=== PATIENT | female | born 1935 | race Caucasian/White ===

== ENCOUNTER 2022-04-25 10:20 | Observation (INO) | payer MEDICARE ==
[2022-04-25] MEDS ORDERED: NITROGLYCERIN OINT 1 INCH/GM PACKET TOPICAL STA (10:42)
[2022-04-25] MEDS ORDERED: ASPIRIN 81 MG PO STA (10:42)
--- NOTE | 2022-04-25 11:00 | ED ---
General Adult HPI - General Chief complaint: Shortness of Breath Stated complaint: SOB Time Seen by Provider: 04/25/22 10:25 Source: patient, EMS, RN notes reviewed Mode of arrival: EMS Limitations: no limitations - History of Present Illness Initial comments: Patient is a pleasant 86-year-old female presenting to the emergency department with concerns with dyspnea and chest pressure. Onset of symptoms was this morning. Patient was in the hospital a few weeks ago at a different facility with fluid overload. Patient does have history of atrial fibrillation and does take Xarelto. Chest discomfort lasted this morning and was described as pressure. This is now resolved. No associated nausea or diaphoresis. - Related Data Allergies Allergy/AdvReac Type Severity Reaction Status Date / Time Penicillins Allergy Unknown Verified 04/25/22 10:45 Review of Systems ROS Statement: Those systems with pertinent positive or pertinent negative responses have been documented in the HPI. ROS Other: All systems not noted in ROS Statement are negative. Constitutional: Denies: fever Eyes: Denies: eye pain ENT: Denies: ear pain Respiratory: Reports: as per HPI, dyspnea. Denies: cough Cardiovascular: Reports: as per HPI, chest pain Endocrine: Denies: fatigue Gastrointestinal: Denies: abdominal pain Genitourinary: Denies: dysuria Musculoskeletal: Denies: back pain Past Medical History Past Medical History: Atrial Fibrillation, Heart Failure, Hyperlipidemia, Hypertension History of Any Multi-Drug Resistant Organisms: None Reported Past Surgical History: Adenoidectomy, Hysterectomy, Orthopedic Surgery, Pacemaker, Tonsillectomy Additional Past Surgical History / Comment(s): cataract surgery Past Psychological History: No Psychological Hx Reported Smoking Status: Never smoker Past Alcohol Use History: Occasional Past Drug Use History: None Reported General Exam Limitations: no limitations General appearance: alert, in no apparent distress Head exam: Present: normocephalic Eye exam: Present: normal appearance Neck exam: Present: normal inspection Respiratory exam: Present: normal lung sounds bilaterally Cardiovascular Exam: Present: regular rate, normal rhythm Expanded Peripheral pulses: 2+: Radial (R), Radial (L), Posterior Tibialis (R), Posterior Tibialis (L) GI/Abdominal exam: Present: soft. Absent: tenderness Extremities exam: Present: normal inspection. Absent: pedal edema, calf tenderness Neurological exam: Present: alert Psychiatric exam: Present: normal affect, normal mood Skin exam: Present: normal color Course Vital Signs 04/25/22 04/25/22 10:34 11:23 Temperature 97.9 F Pulse Rate 79 Respiratory 18 18 Rate Blood Pressure 150/89 O2 Sat by Pulse 98 Oximetry EKG Findings - EKG Results: EKG: interpreted by YAMILETHD (Wide QRS complex when pacers bikes kick in. There is inferior T wave inversion as well as V2. Borderline ST change aVL. Borderline inferior ST depression), normal axis EKG shows: atrial fibrillation (With pacer spikes at the end of the EKG) Medical Decision Making - Medical Decision Making Was pt. sent in by a medical professional or institution (, PA, COMPENSATION ASSOCIATE, urgent c are, hospital, or alf...) When possible be specific @ -No Did you speak to anyone other than the patient for history (EMS, parent, family, police, friend...)? What history was obtained from this source @ -No Did you review nursing and triage notes (agree or disagree)? Why? @ -I reviewed and agree with nursing and triage notes Were old charts reviewed (outside hosp., previous admission, EMS record, old EKG, old radiological studies, urgent care reports/EKG's, alf records)? Report findings @ -No old charts are available Differential Diagnosis (chest pain, altered mental status, abdominal pain women, abdominal pain men, vaginal bleeding, weakness, fever, dyspnea, syncope, headache, dizziness, GI bleed, back pain, seizure, CVA, palpatations, mental health)? @ -Differential Dyspnea: Coronary syndrome, arrhythmia, tamponade, asthma, COPD, pulmonary embolism, pneumonia, pneumothorax, pulmonary effusion, anaphylaxis, diabetic ketoacidosis, flailed chest, pulmonary contusion, diaphragmatic rupture, anemia, neuromuscular, this is not meant to be an all-inclusive list. EKG interpreted by me (3pts min.). @ -As above X-rays interpreted by me (1pt min.). @ -Chest x-ray shows mild increase fluid, correlate CHF CT interpreted by me (1pt min.). @ -None done U/S interpreted by me (1pt. min.). @ -None done What testing was considered but not performed or refused? (CT, X-rays, U/S, labs)? Why? @ -None What meds were considered but not given or refused? Why? @ -None Did you discuss the management of the patient with other professionals (professionals i.e. , PA, COMPENSATION ASSOCIATE, lab, RT, psych nurse, protective services social worker, wet primer powder blender, teacher, policy officer, rn case manager hospice)? Give summary @ -Case discussed with Dr. Keenan, who will admit covering hospital call Was smoking cessation discussed for >3mins.? @ -No Was critical care preformed (if so, how long)? @ -No Were there social determinants of health that impacted care today? How? (Homelessness, low income, unemployed, alcoholism, drug addiction, transportation, low edu. Level, literacy, decrease access to med. care, fpc, rehab)? @ -No Was there de-escalation of care discussed even if they declined (Discuss DNR or withdrawal of care, Hospice)? DNR status @ -No What co-morbidities impacted this encounter? (DM, HTN, Smoking, COPD, CAD, Cancer, CVA, ARF, Chemo, Hep., AIDS, mental health diagnosis, sleep apnea, morbid obesity)? @ -History of cardiac disease and CHF Was patient admitted / discharged? Hospital course, mention meds given and route, prescriptions, significant lab abnormalities, going to OR and other pertinent info. @ -Patient reevaluated. Patient resting comfortably in bed. Patient updated on results and plan. Patient will be admitted with cardiology consult Undiagnosed new problem with uncertain prognosis? @ -No Drug Therapy requiring intensive monitoring for toxicity (Heparin, Nitro, Insulin, Cardizem)? @ -No Were any procedures done? @ -No Diagnosis/symptom? @ -Chest pain Acute, or Chronic, or Acute on Chronic? @ -Acute Uncomplicated (without systemic symptoms) or Complicated (systemic symptoms)? @ -Uncomplicated Side effects of treatment? @ -No Exacerbation, Progression, or Severe Exacerbation? @ -No Poses a threat to life or bodily function? How? (Chest pain, [place], MA, pneumonia, PE, COPD, DKA, ARF, appy, cholecystitis, CVA, Diverticulitis, Homicidal, Suicidal, threat to staff... and all critical care pts) @ -Potential threat if chest discomfort is related to cardiac ischemia - Lab Data Result diagrams: 04/25/22 10:47 04/25/22 10:47 Lab Results 04/25/22 04/25/22 04/25/22 Range/Units 10:47 10:47 10:47 WBC 3.8 (3.8-10.6) k/uL RBC 4.27 (3.80-5.40) m/uL Hgb 12.9 (11.4-16.0) gm/dL Hct 38.4 (34.0-46.0) % MCV 89.9 (80.0-100.0) fL MCH 30.2 (25.0-35.0) pg MCHC 33.6 (31.0-37.0) g/dL RDW 13.1 (11.5-15.5) % Plt Count 187 (150-450) k/uL MPV 8.3 Neutrophils % 59 % Lymphocytes % 20 % Monocytes % 9 % Eosinophils % 7 % Basophils % 1 % Neutrophils # 2.2 (1.3-7.7) k/uL Lymphocytes # 0.7 L (1.0-4.8) k/uL Monocytes # 0.4 (0-1.0) k/uL Eosinophils # 0.3 (0-0.7) k/uL Basophils # 0.0 (0-0.2) k/uL PT 11.7 (9.0-12.0) sec INR 1.1 (<1.2) APTT 31.4 H (22.0-30.0) sec Sodium 141 (137-145) mmol/L Potassium 4.3 (3.5-5.1) mmol/L Chloride 104 (98-107) mmol/L Carbon Dioxide 31 H (22-30) mmol/L Anion Gap 6 mmol/L BUN 29 H (7-17) mg/dL Creatinine 0.69 (0.52-1.04) mg/dL Est GFR (CKD-EPI)AfAm >90 (>60 ml/min/1.73 sqM) Est GFR (CKD-EPI)NonAf 80 (>60 ml/min/1.73 sqM) Glucose 94 (74-99) mg/dL Calcium 9.0 (8.4-10.2) mg/dL Magnesium 2.3 (1.6-2.3) mg/dL Total Bilirubin 1.1 (0.2-1.3) mg/dL AST 33 (14-36) U/L ALT 22 (4-34) U/L Alkaline Phosphatase 45 (38-126) U/L Troponin I (0.000-0.034) ng/mL NT-Pro-B Natriuret Pep pg/mL Total Protein 6.8 (6.3-8.2) g/dL Albumin 4.1 (3.5-5.0) g/dL 04/25/22 04/25/22 Range/Units 10:47 10:47 WBC (3.8-10.6) k/uL RBC (3.80-5.40) m/uL Hgb (11.4-16.0) gm/dL Hct (34.0-46.0) % MCV (80.0-100.0) fL MCH (25.0-35.0) pg MCHC (31.0-37.0) g/dL RDW (11.5-15.5) % Plt Count (150-450) k/uL MPV Neutrophils % % Lymphocytes % % Monocytes % % Eosinophils % % Basophils % % Neutrophils # (1.3-7.7) k/uL Lymphocytes # (1.0-4.8) k/uL Monocytes # (0-1.0) k/uL Eosinophils # (0-0.7) k/uL Basophils # (0-0.2) k/uL PT (9.0-12.0) sec INR (<1.2) APTT (22.0-30.0) sec Sodium (137-145) mmol/L Potassium (3.5-5.1) mmol/L Chloride (98-107) mmol/L Carbon Dioxide (22-30) mmol/L Anion Gap mmol/L BUN (7-17) mg/dL Creatinine (0.52-1.04) mg/dL Est GFR (CKD-EPI)AfAm (>60 ml/min/1.73 sqM) Est GFR (CKD-EPI)NonAf (>60 ml/min/1.73 sqM) Glucose (74-99) mg/dL Calcium (8.4-10.2) mg/dL Magnesium (1.6-2.3) mg/dL Total Bilirubin (0.2-1.3) mg/dL AST (14-36) U/L ALT (4-34) U/L Alkaline Phosphatase (38-126) U/L Troponin I <0.012 (0.000-0.034) ng/mL NT-Pro-B Natriuret Pep 567 pg/mL Total Protein (6.3-8.2) g/dL Albumin (3.5-5.0) g/dL Disposition Clinical Impression: Chest pain Disposition: ADMITTED IP TO THIS HOSP Is patient prescribed a controlled substance at d/c from ED?: No Referrals: Aarti Peña DO [Primary Care Provider] - 1-2 days Time of Disposition: 12:46
[2022-04-25 11:08] LABS: Basophils % (A) 1 %; Eosinophils # (A) 0.3 k/uL (0-0.7); Eosinophils % (A) 7 %; HCT 38.4 % (34.0-46.0); HGB 12.9 gm/dL (11.4-16.0); Lymphocytes # (A) 0.7 k/uL (1.0-4.8); Lymphocytes % (A) 20 %; MCH 30.2 pg (25.0-35.0); MCHC 33.6 g/dL (31.0-37.0); MCV 89.9 fL (80.0-100.0); Mean Platelet Volume 8.3; Monocytes # (A) 0.4 k/uL (0-1.0); Monocytes % (A) 9 %; Neutrophils # (A) 2.2 k/uL (1.3-7.7); Neutrophils % (A) 59 %; Platelet Count 187 k/uL (150-450); RBC 4.27 m/uL (3.80-5.40); RDW 13.1 % (11.5-15.5); WBC 3.8 k/uL (3.8-10.6)
[2022-04-25 11:15] LABS: INR 1.1 (<1.2); Partial Thromboplastin Time 31.4 sec (22.0-30.0); Prothrombin Time 11.7 sec (9.0-12.0)
--- NOTE | 2022-04-25 11:26 | XR ---
EXAMINATION TYPE: XR chest 2V DATE OF EXAM: 04/25/2022 COMPARISON: NONE HISTORY: Chest pain TECHNIQUE: Frontal and lateral views of the chest are obtained. FINDINGS: There is a 2-lead cardiac pacemaker and mild to moderate cardiomegaly. The pulmonary vasculature ami ears mildly cephalized raising the possibility of mild CHF. There is no airspace opacity. There is no pleural effusion or pneumothorax. The osseous structures ar e intact IMPRESSION: Possible mild CHF as described above.
[2022-04-25 11:28] LABS: ALT 22 U/L (4-34); AST 33 U/L (14-36); African American GFR (CKD) >90 (>60 ml/min/1.73 sqM); Albumin 4.1 g/dL (3.5-5.0); Alkaline Phosphatase 45 U/L (38-126); Anion Gap 6 mmol/L; Blood Urea Nitrogen 29 mg/dL (7-17); Carbon Dioxide 31 mmol/L (22-30); Chloride 104 mmol/L (98-107); Glucose 94 mg/dL (74-99); Magnesium 2.3 mg/dL (1.6-2.3); Non-African American GFR(CKD) 80 (>60 ml/min/1.73 sqM); Potassium 4.3 mmol/L (3.5-5.1); Sodium 141 mmol/L (137-145); Total Bilirubin 1.1 mg/dL (0.2-1.3); Total Protein 6.8 g/dL (6.3-8.2)
[2022-04-25] MEDS ORDERED: NITROGLYCERIN SL TABS 0.4 MG TAB SUBLINGUAL PRN (12:47)
[2022-04-25] MEDS ORDERED: FUROSEMIDE 10 MG/ML 4 ML VIAL IV STA (12:47)
[2022-04-25] MEDS ORDERED: CALCIUM CARBONATE 500 MG CHEWABLE PO PRN (14:23)
[2022-04-25] MEDS ORDERED: MELATONIN 3 MG TABLET PO PRN (14:23)
[2022-04-25] MEDS ORDERED: LORazepam 0.5 MG TAB PO PRN (14:23)
[2022-04-25] MEDS ORDERED: ACETAMINOPHEN TAB 325 MG TAB PO PRN (14:23)
[2022-04-25] MEDS ORDERED: ONDANSETRON 4 MG/2 ML VIAL IVP PRN (14:23)
[2022-04-25] MEDS ORDERED: NALOXONE 0.4 MG/ML 1 ML VIAL IV PRN (14:23)
[2022-04-25] MEDS ORDERED: LACTULOSE 20 GM/30 ML CUP PO PRN (14:23)
--- NOTE | 2022-04-25 15:58 | P.HPIM ---
History of Present Illness H&P Date: 04/25/22 Chief Complaint: Short of breath This is a very pleasant 86-year-old patient follows with natural developer Dr. Cobb. Chronic stable medical conditions include atrial fibrillation, CHF, hypertension, hyperlipidemia, pacemaker. At 9:00 this morning patient started feeling a bit short of breath. Also developed a chest pressure. That last about 5 minutes. Did not radiate. No dizziness no letter did miss. No cough or lower exstrophy setting. No fever no chills. Feeling a bit better now. Review of systems: GEN.: Tired EYES: None HEENT: Decreased hearing NECK: None RESPIRATORY: As above CARDIOVASCULAR: No new leg swelling GASTROINTESTINAL: None GENITOURINARY: None MUSCULOSKELETAL: Joint pains LYMPHATICS: None HEMATOLOGICAL: None PSYCHIATRY: None NEUROLOGICAL: None Past medical history to include: Atrial fibrillation, CHF, hypertension, hyperlipidemia, osteoarthritis, permanent pacemaker Social history: Lives with her . Alcohol occasionally. Nonsmoker. Physical examination: VITAL SIGNS: 97.9, 79, 18, 150/89, 98% room air GENERAL: BMI 34.6, sitting edge the bed, awake not in distress. EYES: Pupils equal. Conjunctiva normal. HEENT: External appearance of nose and ears normal, oral cavity grossly normal. Decreased hearing NECK: JVD not raised; masses not palpable. HEART: First and second heart sounds are normal; no edema. LUNGS: Respiratory rate normal; clear to auscultation. ABDOMEN: Soft, nontender, liver spleen not palpable, no masses palpable. PSYCH: Alert and oriented x3; mood and affect normal. MUSCULOSKELETAL:No Clubbing/cyanosis;muscles-grossly intact. ON many joints NEUROLOGICAL: Cranial nerves grossly intact; no facial asymmetry, power and sensation grossly intact. LYMPHATICS: No lymph nodes palpable in the axilla and neck INVESTIGATIONS, reviewed in the clinical context: White count 3.8 hemoglobin 12.9 platelets 187 potassium 4.3 BUN 29 creatinine 0.69 D-dimer 0.62 EKG tracing personally reviewed by me-underlying atrial fibrillation with ventricular paced rhythm intermittently Chest x-ray film personally reviewed by me-carbohydrate, less prominence Assessment and plan: -Acute congestive heart feeling exacerbation, EF not known Received 1 dose of IV Lasix 40 mg the ER. IV Lasix 40 mg every 12. 2-D echocardiogram. Consult cardiology. -Elevated d-dimer 0.62 Rule out PE/CT chest -Persistent atrial fibrillation, rate controlled Metoprolol XL 200 mg a day, Xarelto -Primary osteoarthritis Tylenol as needed -Full code Care was discussed with the patient has been at the bedside. Questions answered. Past Medical History Past Medical History: Atrial Fibrillation, Heart Failure, Hyperlipidemia, Hypertension History of Any Multi-Drug Resistant Organisms: None Reported Past Surgical History: Adenoidectomy, Hysterectomy, Orthopedic Surgery, Pacemaker, Tonsillectomy Additional Past Surgical History / Comment(s): cataract surgery Type of Cardiac Device: Permanent Pacemaker Device Placement Date:: 2013 Past Psychological History: No Psychological Hx Reported Smoking Status: Never smoker Past Alcohol Use History: Occasional Past Drug Use History: None Reported Medications and Allergies Home Medications Medication Instructions Recorded Confirmed Type Allergy Pill(Unknown) 1 tab PO DAILY PRN 04/25/22 04/25/22 History Aspirin [[place] Aspirin EC] 81 mg PO W/SUPPER 04/25/22 04/25/22 History Ezetimibe [Zetia] 10 mg PO W/SUPPER 04/25/22 04/25/22 History Furosemide [Lasix] 80 mg PO DAILY 04/25/22 04/25/22 History Ibandronate Sodium [Boniva] 150 mg PO Q30D 04/25/22 04/25/22 History Metoprolol Succinate 200 mg PO DAILY 04/25/22 04/25/22 History Potassium Chloride [Klor-Con 10 ER] 10 meq PO DAILY 04/25/22 04/25/22 History Retnavites 2 tab PO DAILY 04/25/22 04/25/22 History Rivaroxaban [Xarelto] 20 mg PO W/SUPPER 04/25/22 04/25/22 History Vitamin D3/Calcium 600mg 1 tab PO BID 04/25/22 04/25/22 History Allergies Allergy/AdvReac Type Severity Reaction Status Date / Time Penicillins Allergy Unknown Verified 04/25/22 15:23 Physical Exam Vitals: Vital Signs Temp Pulse Pulse Resp BP BP Pulse Ox 04/25/22 14:17 98 F 70 18 139/86 99 04/25/22 13:18 74 15 136/78 99 04/25/22 11:23 18 04/25/22 10:34 97.9 F 79 18 150/89 98 Intake and Output 04/25/22 04/25/22 04/25/22 06:59 14:59 22:59 Other: # Voids 1 Weight 83.007 kg Results CBC & Chem 7: 04/25/22 10:47 04/25/22 10:47 Labs: Abnormal Lab Results - Last 24 Hours (Table) 04/25/22 04/25/22 04/25/22 Range/Units 10:47 10:47 10:47 Lymphocytes # 0.7 L (1.0-4.8) k/uL APTT 31.4 H (22.0-30.0) sec D-Dimer (<0.60) mg/L FEU Carbon Dioxide 31 H (22-30) mmol/L BUN 29 H (7-17) mg/dL 04/25/22 Range/Units 14:30 Lymphocytes # (1.0-4.8) k/uL APTT (22.0-30.0) sec D-Dimer 0.62 H (<0.60) mg/L FEU Carbon Dioxide (22-30) mmol/L BUN (7-17) mg/dL Thrombosis Risk Factor Assmnt - Choose All That Apply Any of the Below Risk Factors Present?: Yes Each Factor Represents 1 point: Obesity (BMI >25) Other Risk Factors: Yes Each Risk Factor Represents 3 Points: Age 75 years or older Other congenital or acquired thrombophilia - If yes, enter type in comment: No Thrombosis Risk Factor Assessment Total Risk Factor Score: 4 Thrombosis Risk Factor Assessment Level: Moderate Risk
[2022-04-25] MEDS: ASPIRIN 81 MG PO SCH (17:16)
--- NOTE | 2022-04-25 17:16 | CT ---
EXAMINATION TYPE: CT angio chest DATE OF EXAM: 04/25/2022 COMPARISON: None HISTORY: Chest pain, SOB and elevated d-dimer. CT DLP: 363.6 mGycm Automated exposure control for dose reduction was used. CONTRAST: Performed with IV Contrast, patient injected with 79ml mL of Isovue 370. There are Three-D postprocessed images. No mediastinal adenopathy. There are no hilar masses. There is large central pulmonary arteries. No f illing defect seen in the pulmonary arteries. Thoracic aorta appears intact. No evidence of aneurysm or dissection. The ascending aorta measures 3.6 cm. Heart is borderline enlarged. There is mild subsegmental atelectasis at the lung bases. No pleural ef fusion. There are calcified splenic granulomata. The thoracic spine is intact sternum is intact. IMPRESSION: No evidence of pulmonary embolism. Cardiomegaly and changes of pulmonary hypertension. Fibrotic rose es and subsegmental atelectasis at the lung bases. No suspicious pulmonary mass.
[2022-04-25] MEDS: RIVAROXABAN 20 MG TAB PO SCH (17:19)
[2022-04-25] MEDS: EZETIMIBE 10 MG TAB PO SCH (17:20)
[2022-04-25] MEDS ORDERED: POTASSIUM CHLORIDE ER 10 MEQ TAB.ER.PRT PO STA (17:22)
[2022-04-25] MEDS: NITROGLYCERIN OINT 1 INCH/GM PACKET TOPICAL SCH (19:31)
[2022-04-25] MEDS: CALCIUM CARB-VIT D 500 MG-5 MCG TAB PO SCH (19:56)
[2022-04-26] MEDS: NITROGLYCERIN OINT 1 INCH/GM PACKET TOPICAL SCH ×4 (02:34→19:30)
--- NOTE | 2022-04-26 08:11 | P.CRDCN ---
History of Present Illness Consult date: 04/26/22 Chief complaint: CP History of present illness: The patient is a pleasant 86-year-old female patient was physical and mental physical and mental shape with a past medical history significant for permanent atrial fibrillation and permanent pacemaker as well as hypertension and dyslipidemia presented to the hospital complaining of chest discomfort. The patient was in her usual state of health until yesterday when she was trying to get out of the bed and she started experiencing discomfort in the chest. She described the discomfort as a pressure in the middle of the chest was some radiation to her left arms but no associated symptoms of shortness of breath or sweating or dizziness or lightheadedness or any feeling of heart racing or flu ttering or presyncope or syncope. The discomfort lasted about 5-10 minutes. Currently she is chest pain-free. She underwent a workup in the emergency department she showing underlying atrial fibrillation with ventricular paced rhythm and she underwent cardiac enzymes came in to be unremarkable. D-dimer came in to be abnormal was subsequently CTA of the chest did not show any evidence of pulmonary embolism. Currently the patient is chest pain-free. The rest of her workup including CBC and BNP came in to be unremarkable. The examination is remarkable for regular rhythm with a systolic murmur and clear breathing sounds bilaterally and no lower eccentric is edema noted. Vitals are stable as well. Assessment Chest discomfort. Currently the patient is chest pain-free Hypertension Dyslipidemia Permanent pacemaker Permanent atrial fibrillation Plan Acute coronary event was ruled out Pulmonary embolism was ruled out Rule out severe CAD giving her multiple risk factors. I'm going to obtain a stress test Follow-up with the patient Past Medical History Past Medical History: Atrial Fibrillation, Heart Failure, Hyperlipidemia, Hypertension History of Any Multi-Drug Resistant Organisms: None Reported Past Surgical History: Adenoidectomy, Hysterectomy, Orthopedic Surgery, Pacemaker, Tonsillectomy Additional Past Surgical History / Comment(s): cataract surgery Type of Cardiac Device: Permanent Pacemaker Device Placement Date:: 2013 Past Psychological History: No Psychological Hx Reported Smoking Status: Never smoker Past Alcohol Use History: Occasional Past Drug Use History: None Reported Medications and Allergies Home Medications Medication Instructions Recorded Confirmed Type Allergy Pill(Unknown) 1 tab PO DAILY PRN 04/25/22 04/25/22 History Aspirin [[place] Aspirin EC] 81 mg PO W/SUPPER 04/25/22 04/25/22 History Ezetimibe [Zetia] 10 mg PO W/SUPPER 04/25/22 04/25/22 History Furosemide [Lasix] 80 mg PO DAILY 04/25/22 04/25/22 History Ibandronate Sodium [Boniva] 150 mg PO Q30D 04/25/22 04/25/22 History Metoprolol Succinate 200 mg PO DAILY 04/25/22 04/25/22 History Potassium Chloride [Klor-Con 10 ER] 10 meq PO DAILY 04/25/22 04/25/22 History Retnavites 2 tab PO DAILY 04/25/22 04/25/22 History Rivaroxaban [Xarelto] 20 mg PO W/SUPPER 04/25/22 04/25/22 History Vitamin D3/Calcium 600mg 1 tab PO BID 04/25/22 04/25/22 History Allergies Allergy/AdvReac Type Severity Reaction Status Date / Time Penicillins Allergy Unknown Verified 04/25/22 15:23 Physical Exam Vitals: Vital Signs Temp Pulse Pulse Resp BP BP Pulse Ox 04/26/22 07:00 97.5 F L 71 18 103/65 97 04/26/22 02:00 97.6 F 70 16 110/73 97 04/25/22 19:01 97.8 F 67 18 117/74 91 L 04/25/22 14:17 98 F 70 18 139/86 99 04/25/22 13:18 74 15 136/78 99 04/25/22 11:23 18 04/25/22 10:34 97.9 F 79 18 150/89 98 Intake and Output 04/25/22 04/26/22 04/26/22 22:59 06:59 14:59 Intake Total 120 Balance 120 Intake: Oral 120 Other: Voiding Method Toilet Toilet # Voids 1 3 Results 04/25/22 10:47 04/25/22 10:47 Cardiac Enzymes 04/25/22 04/25/22 04/25/22 Range/Units 10:47 10:47 14:30 AST 33 (14-36) U/L Troponin I <0.012 <0.012 (0.000-0.034) ng/mL 04/25/22 Range/Units 17:05 AST (14-36) U/L Troponin I <0.012 (0.000-0.034) ng/mL Coagulation 04/25/22 Range/Units 10:47 PT 11.7 (9.0-12.0) sec APTT 31.4 H (22.0-30.0) sec CBC 04/25/22 Range/Units 10:47 WBC 3.8 (3.8-10.6) k/uL RBC 4.27 (3.80-5.40) m/uL Hgb 12.9 (11.4-16.0) gm/dL Hct 38.4 (34.0-46.0) % Plt Count 187 (150-450) k/uL Comprehensive Metabolic Panel 04/25/22 Range/Units 10:47 Sodium 141 (137-145) mmol/L Potassium 4.3 (3.5-5.1) mmol/L Chloride 104 (98-107) mmol/L Carbon Dioxide 31 H (22-30) mmol/L BUN 29 H (7-17) mg/dL Creatinine 0.69 (0.52-1.04) mg/dL Glucose 94 (74-99) mg/dL Calcium 9.0 (8.4-10.2) mg/dL AST 33 (14-36) U/L ALT 22 (4-34) U/L Alkaline Phosphatase 45 (38-126) U/L Total Protein 6.8 (6.3-8.2) g/dL Albumin 4.1 (3.5-5.0) g/dL Current Medications Generic Name Dose Route Start Last Admin Trade Name Freq PRN Reason Stop Dose Admin Acetaminophen 650 mg 04/25/22 14:23 Acetaminophen Tab 325 Mg Tab PO Q6HR PRN Mild Pain or Fever > 100.5 Aspirin 81 mg 04/25/22 17:30 04/25/22 17:16 Aspirin 81 Mg PO Not Given W/SUPPER [place] Calcium Carbonate 1 each 04/25/22 21:00 04/25/22 19:56 Calcium Carb-Vit D 500 Mg-5 Mcg Tab PO 1 each BID [place] Administration Calcium Carbonate/Glycine 1,000 mg 04/25/22 14:23 Calcium Carbonate 500 Mg Chewable PO Q4HR PRN Dyspepsia Ezetimibe 10 mg 04/25/22 17:30 04/25/22 17:20 Ezetimibe 10 Mg Tab PO 10 mg W/SUPPER [place] Administration Furosemide 80 mg 04/26/22 09:00 Furosemide 80 Mg Tab PO DAILY [place] Lactulose 20 gm 04/25/22 14:23 Lactulose 20 Gm/30 Ml Cup PO DAILY PRN Constipation Lorazepam 0.5 mg 04/25/22 14:23 Lorazepam 0.5 Mg Tab PO Q6HR PRN Anxiety Melatonin 3 mg 04/25/22 14:23 Melatonin 3 Mg Tablet PO HS PRN Insomnia Metoprolol Succinate 200 mg 04/26/22 09:00 Metoprolol Succinate (Er) 100 Mg Tab.Er.24h PO DAILY [facility] Naloxone HCl 0.2 mg 04/25/22 14:23 Naloxone 0.4 Mg/Ml 1 Ml Vial IV Q2M PRN Opioid Reversal Nitroglycerin 0.4 mg 04/25/22 12:47 Nitroglycerin Sl Tabs 0.4 Mg Tab SUBLINGUAL Q5M PRN Chest Pain Nitroglycerin 1 inch 04/25/22 18:00 04/26/22 05:16 Nitroglycerin Oint 1 Inch/Gm Packet TOPICAL Not Given Q6HR [facility] Ondansetron HCl 4 mg 04/25/22 14:23 Ondansetron 4 Mg/2 Ml Vial IVP Q8HR PRN Nausea And Vomiting Potassium Chloride 10 meq 04/26/22 09:00 Potassium Chloride Er 10 Meq Tab.Er.Prt PO DAILY [facility] Rivaroxaban 20 mg 04/25/22 17:30 04/25/22 17:19 Rivaroxaban 20 Mg Tab PO 20 mg W/SUPPER [facility] Administration Protocol Sodium Chloride 10 ml 04/25/22 21:00 04/25/22 19:56 Sodium Chloride 0.9% Flush 10 Ml Syringe IV 10 ml BID [facility] Administration Intake and Output 04/25/22 04/26/22 04/26/22 22:59 06:59 14:59 Intake Total 120 Balance 120 Intake: Oral 120 Other: Voiding Method Toilet Toilet # Voids 1 3 04/25/22 10:47 04/25/22 10:47
[2022-04-26] MEDS ORDERED: CAFFEINE CITRATE 60 MG/3 ML VIAL IV PRN (08:44)
[2022-04-26] MEDS ORDERED: AMINOPHYLLINE 500 MG/20 ML VIAL IV PRN (08:44)
[2022-04-26] MEDS: METOPROLOL SUCCINATE (ER) 100 MG TAB.ER.24H PO SCH (08:45)
[2022-04-26] MEDS: FUROSEMIDE 80 MG TAB PO SCH (08:46)
[2022-04-26] MEDS: CALCIUM CARB-VIT D 500 MG-5 MCG TAB PO SCH ×2 (08:46→20:14)
[2022-04-26] MEDS: POTASSIUM CHLORIDE ER 10 MEQ TAB.ER.PRT PO SCH (08:46)
[2022-04-26] MEDS ORDERED: ASPIRIN 325 MG TAB PO SCH (09:00)
[2022-04-26 09:50] LABS: Chol/HDL Ratio 3.52 Ratio; LDL Cholesterol,Calculated 91.2 mg/dL (0.0-131.0)
[2022-04-26] MEDS: ASPIRIN 81 MG PO SCH (17:19)
[2022-04-26] MEDS: RIVAROXABAN 20 MG TAB PO SCH (17:19)
[2022-04-26] MEDS: EZETIMIBE 10 MG TAB PO SCH (17:19)
[2022-04-26 21:38] VITALS: RESP 16
--- NOTE | 2022-04-26 22:24 | P.PN ---
Progress Note - Text Progress Note Date: 04/26/22 Chief Complaint: Short of breath This is a very pleasant 86-year-old patient follows with pyroglazer Dr. Cobb. Chronic stable medical conditions include atrial fibrillation, CHF, hypertension, hyperlipidemia, pacemaker. At 9:00 this morning patient started feeling a bit short of breath. Also developed a chest pressure. That last about 5 minutes. Did not radiate. No dizziness no letter did miss. No cough or lower exstrophy setting. No fever no chills. Feeling a bit better now. April 26: Admitted with acute CHF exacerbation. Responded well to IV Lasix. Also chest pressure. Stress echocardiogram for tomorrow.. Up in a chair. Breathing better. Has been out of the bedside. Active Medications Acetaminophen (Acetaminophen Tab 325 Mg Tab) 650 mg PO Q6HR PRN PRN Reason: Mild Pain or Fever > 100.5 Aminophylline (Aminophylline 500 Mg/20 Ml Vial) 100 mg IV ONCE PRN PRN Reason: Patient Response Stop: 04/27/22 23:00 Aspirin (Aspirin 81 Mg) 81 mg PO W/SUPPER [facility] Last Admin: 04/26/22 17:19 Dose: 81 mg Caffeine Citrate (Caffeine Citrate 60 Mg/3 Ml Vial) 60 mg IV ONCE PRN PRN Reason: Patient Response Stop: 04/27/22 23:00 Calcium Carbonate (Calcium Carb-Vit D 500 Mg-5 Mcg Tab) 1 each PO BID [facility] Last Admin: 04/26/22 20:14 Dose: 1 each Calcium Carbonate/Glycine (Calcium Carbonate 500 Mg Chewable) 1,000 mg PO Q4HR PRN PRN Reason: Dyspepsia Ezetimibe (Ezetimibe 10 Mg Tab) 10 mg PO W/SUPPER [facility] Last Admin: 04/26/22 17:19 Dose: 10 mg Furosemide (Furosemide 80 Mg Tab) 80 mg PO DAILY [facility] Last Admin: 04/26/22 08:46 Dose: 80 mg Lactulose (Lactulose 20 Gm/30 Ml Cup) 20 gm PO DAILY PRN PRN Reason: Constipation Lorazepam (Lorazepam 0.5 Mg Tab) 0.5 mg PO Q6HR PRN PRN Reason: Anxiety Melatonin (Melatonin 3 Mg Tablet) 3 mg PO HS PRN PRN Reason: Insomnia Metoprolol Succinate (Metoprolol Succinate (Er) 100 Mg Tab.Er.24h) 200 mg PO DAILY [facility] Last Admin: 04/26/22 08:45 Dose: 200 mg Naloxone HCl (Naloxone 0.4 Mg/Ml 1 Ml Vial) 0.2 mg IV Q2M PRN PRN Reason: Opioid Reversal Nitroglycerin (Nitroglycerin Sl Tabs 0.4 Mg Tab) 0.4 mg SUBLINGUAL Q5M PRN PRN Reason: Chest Pain Nitroglycerin (Nitroglycerin Oint 1 Inch/Gm Packet) 1 inch TOPICAL Q6HR [facility] Last Admin: 04/26/22 19:30 Dose: Not Given Ondansetron HCl (Ondansetron 4 Mg/2 Ml Vial) 4 mg IVP Q8HR PRN PRN Reason: Nausea And Vomiting Potassium Chloride (Potassium Chloride Er 10 Meq Tab.Er.Prt) 10 meq PO DAILY [facility] Last Admin: 04/26/22 08:46 Dose: 10 meq Regadenoson (Regadenoson 0.4 Mg/5 Ml Syringe) 0.4 mg IV ONCE PRN PRN Reason: Per Protocol Stop: 04/26/22 12:44 Rivaroxaban (Rivaroxaban 20 Mg Tab) 20 mg PO W/SUPPER [facility]; Protocol Last Admin: 04/26/22 17:19 Dose: 20 mg Sodium Chloride (Sodium Chloride 0.9% Flush 10 Ml Syringe) 10 ml IV BID [facility] Last Admin: 04/26/22 20:14 Dose: 10 ml Past medical history to include: Atrial fibrillation, CHF, hypertension, hyperlipidemia, osteoarthritis, permanent pacemaker Social history: Lives with her . Alcohol occasionally. Nonsmoker. Physical examination: VITAL SIGNS: 97.9, 77, 18, 98/66, 94% room air GENERAL: Up in a chair, comfortable EYES: Pupils equal. Conjunctiva normal. HEENT: External appearance of nose and ears normal, oral cavity grossly normal. Decreased hearing NECK: JVD not raised; masses not palpable. HEART: First and second heart sounds are normal; no edema. LUNGS: Respiratory rate normal; clear to auscultation. ABDOMEN: Soft, nontender, liver spleen not palpable, no masses palpable. PSYCH: Alert and oriented x3; mood and affect normal. MUSCULOSKELETAL:No Clubbing/cyanosis;muscles-grossly intact. ON many joints INVESTIGATIONS, reviewed in the clinical context: CT chest: Negative for PE LDL 91 White count 3.8 hemoglobin 12.9 platelets 187 potassium 4.3 BUN 29 creatinine 0.69 D-dimer 0.62 EKG tracing personally reviewed by me-underlying atrial fibrillation with ventricular paced rhythm intermittently Chest x-ray film personally reviewed by me-carbohydrate, less prominence Assessment and plan: -Acute congestive heart feeling exacerbation, EF not known Received 1 dose of IV Lasix 40 mg the ER. By mouth Lasix. 2-D echocardiogram. -Chest pain Stress echocardiogram -Elevated d-dimer 0.62 CT chest negative for PE -Persistent atrial fibrillation, rate controlled Metoprolol XL 200 mg a day, Xarelto -Primary osteoarthritis Tylenol as needed -Full code Doing better. Stress echocardiogram tomorrow. Change by mouth Lasix
[2022-04-27] MEDS: NITROGLYCERIN OINT 1 INCH/GM PACKET TOPICAL SCH ×2 (00:05→05:31)
[2022-04-27] MEDS ORDERED: REGADENOSON 0.4 MG/5 ML SYRINGE IV PRN (07:00)
[2022-04-27 07:51] LABS: African American GFR (CKD) >90 (>60 ml/min/1.73 sqM); Anion Gap 7 mmol/L; Blood Urea Nitrogen 25 mg/dL (7-17); Calcium 8.9 mg/dL (8.4-10.2); Carbon Dioxide 27 mmol/L (22-30); Chloride 106 mmol/L (98-107); Glucose 89 mg/dL (74-99); Non-African American GFR(CKD) 79 (>60 ml/min/1.73 sqM); Sodium 140 mmol/L (137-145)
[2022-04-27] MEDS ORDERED: REGADENOSON 0.4 MG/5 ML SYRINGE IV ONE (09:15)
--- NOTE | 2022-04-27 09:32 | P.PN ---
Subjective Progress Note Date: 04/27/22 History of present illness: The patient is a pleasant 86-year-old female patient was physical and mental p hysical and mental shape with a past medical history significant for permanent atrial fibrillation and permanent pacemaker as well as hypertension and dyslipidemia presented to the hospital complaining of chest discomfort. The patient was in her usual state of health until yesterday when she was trying to get out of the bed and she started experiencing discomfort in the chest. She described the discomfort as a pressure in the middle of the chest was some radiation to her left arms but no associated symptoms of shortness of breath or sweating or dizziness or lightheadedness or any feeling of heart racing or fluttering or presyncope or syncope. The discomfort lasted about 5-10 minutes. Currently she is chest pain-free. She underwent a workup in the emergency department she showing underlying atrial fibrillation with ventricular paced rhythm and she underwent cardiac enzymes came in to be unremarkable. D-dimer came in to be abnormal was subsequently CTA of the chest did not show any evidence of pulmonary embolism. Currently the patient is chest pain-free. The rest of her workup including CBC and BNP came in to be unremarkable. The examination is remarkable for regular rhythm with a systolic murmur and clear breathing sounds bilaterally and no lower eccentric is edema noted. Vitals are stable as well. 04/27 The patient denies having any chest pain or shortness of breath today. Blood pressure is 110/76 and heart rate in the 60s and 70s, pulse ox 97% on room air.repeat BMP is unremarkable. Triglycerides 113, cholesterol 159, LDL 91, HDL 45. Patient is scheduled today for a Lexiscan stress test. Physical examination: Gen: This is an 86-year-old female. No acute distress VS: reviewed HEENT: Head is atraumatic, normocephalic. Pupils equal, round. Sclerae is anicteric. LUNGS: Clear to auscultation. No wheezes or rhonchi. No intercostal retractions. HEART: Regular rate and rhythm. ABDOMEN: Soft. No tenderness. EXTREMITIES: No pedal edema. NEUROLOGICAL: Patient is awake, alert and oriented x3. Assessment: Chest discomfort. Currently the patient is chest pain-free Hypertension Dyslipidemia Permanent pacemaker Permanent atrial fibrillation Plan: Acute coronary event was ruled out Pulmonary embolism was ruled out Rule out severe CAD giving her multiple risk factors. Patient is scheduled for Lexiscan stress test today If stress test comes back within normal limits, patient is cleared from cardiology for discharge home. Nurse practitioner note has been reviewed, I agree with documented findings and plan of care. Patient was seen and examined. Objective - Vital Signs Vital signs: Vital Signs Temp 97.8 F 04/27/22 07:00 Pulse 68 04/27/22 07:00 Resp 16 04/27/22 07:00 BP 110/76 04/27/22 07:00 Pulse Ox 97 04/27/22 07:01 FiO2 Intake & Output 04/26/22 04/27/22 04/27/22 18:59 06:59 18:59 Intake Total 720 Balance 720 Intake: Oral 720 Other: Voiding Method Toilet # Voids 2 1 - Labs CBC & Chem 7: 04/25/22 10:47 04/27/22 06:15 Labs: Abnormal Lab Results - Last 24 Hours (Table) 04/27/22 Range/Units 06:15 BUN 25 H (7-17) mg/dL
[2022-04-27] MEDS: CALCIUM CARB-VIT D 500 MG-5 MCG TAB PO SCH (10:41)
[2022-04-27] MEDS: FUROSEMIDE 80 MG TAB PO SCH (10:41)
[2022-04-27] MEDS: POTASSIUM CHLORIDE ER 10 MEQ TAB.ER.PRT PO SCH (10:41)
[2022-04-27] MEDS: METOPROLOL SUCCINATE (ER) 100 MG TAB.ER.24H PO SCH (10:41)
--- NOTE | 2022-04-27 11:37 | CA ---
Lexiscan Nuclear Stress Test Report Name: Kamla Doe Exam Date: 04/27/2022 09:11 Exam Location: [facility] Ht (in): 61 Wt (lb): 183 BSA: 1.82 Ordering Phys: Herminio Wild MD Referring Phys: KADEN, Technologist: Charles James Age: 86 Gender: F : 1935 Procedure CPT: Indications: Reflex order-Stress test ICD-10 Codes: Patient History: CHEST PRESSURE, DIFFICULTY IN BREATHING, NUMBNESS IN FACE/NECK, HTN, ELEVATED CHOLESTEROL LEVELS, FAMILY HX OF HEART DISEASE, PRIOR CARDIAC CATH Medications: Meds past 24 hrs: Pretest Chest Pain: STRESS TEST Lexiscan Protocol Exercise Duration (min:sec): 02:[address] Depressions (mm): Angina Score: Mancia Score: Resting HR (bpm): 72 Peak HR (bpm): 106 Resting BP (mmHg): 117 / 81 Peak BP (mmHg): 136 / 72 MPHR: 135 Target HR: 115 % MPHR: 79 METS: 1.0 Total Dose: Peak Dose: Atropine: Double Product: 31464 BP Response: Stress Termination: Stress Symptoms: Stress Summary: ECG ANALYSIS Resting ECG: Paced rhythm Stress ECG: Inconclusive CONCLUSIONS Inconclusive EKG part of the stress test due to paced rhythm Cardiolite portion of the stress test will be reported separately Dr. Rm Pressley MD (Electronically Signed) Final Date: 27 April 2022 11:36
--- NOTE | 2022-04-27 12:21 | NM ---
EXAMINATION TYPE: NM stress lexiscan cardiolite DATE OF EXAM: 04/27/2022 COMPARISON: CTA chest 2 days ago. HISTORY: Chest pain. History of hypertension and hypercholesteremia. TECHNIQUE: After the intravenous administration of 9.8 mCi Tc 99m Sestamibi - Cardiolite resting SPE CT images acquired 45 minutes post injection. The patient received 0.4mg Lexiscan, 24.4 mCi Tc 99m Sestamibi - Stress images obtained [address] injection FINDINGS: Review of stress and rest SPECT images demonstrates no distinct perfusion abnormality. Gated analysi s shows normal wall motion with an estimated left ventricular ejection fraction of 63 %. IMPRESSION: No scintigraphic evidence for reversible ischemia.
[2022-04-27 15:25] VITALS: BP 109/73; PULSE 69; TEMP 98
--- NOTE | 2022-04-27 22:12 | P.DS ---
Providers Date of admission: 04/25/22 12:47 Expected date of discharge: 04/27/22 Attending physician: Bobby Keenan Consults: 04/25/22 12:47 Consult Physician Urgent Consulting Provider: Herminio Wild Consult Reason/Comments: cp Do you want consulting provider notified?: Yes Primary care physician: Aarti Peña [place] [facility] Course: Chief Complaint: Short of breath This is a very pleasant 86-year-old patient follows with marquetry worker Dr. Cobb. Chronic stable medical conditions include atrial fibrillation, CHF, hypertension, hyperlipidemia, pacemaker. At 9:00 this morning patient started feeling a bit short of breath. Also developed a chest pressure. That last about 5 minutes. Did not radiate. No dizziness no letter did miss. No cough or lower exstrophy setting. No fever no chills. Feeling a bit better now. April 26: Admitted with acute CHF exacerbation. Responded well to IV Lasix. Also chest pressure. Stress echocardiogram for tomorrow.. Up in a chair. Breathing better. Has been out of the bedside. April 27: Breathing well. Underwent a nuclear stress test. Negative. Cleared by currently. Discussed with patient. Fluid restriction discussed. Patient will follow-up with her marquetry worker. Past medical history to include: Atrial fibrillation, CHF, hypertension, hyperlipidemia, osteoarthritis, permanent pacemaker Social history: Lives with her . Alcohol occasionally. Nonsmoker. Physical examination: VITAL SIGNS: 98, 69, 16, 109/73, 99% room air GENERAL: Up in a chair, comfortable EYES: Pupils equal. Conjunctiva normal. HEENT: External appearance of nose and ears normal, oral cavity grossly normal. Decreased hearing NECK: JVD not raised; masses not palpable. HEART: First and second heart sounds are normal; no edema. LUNGS: Respiratory rate normal; clear to auscultation. ABDOMEN: Soft, nontender, liver spleen not palpable, no masses palpable. PSYCH: Alert and oriented x3; mood and affect normal. MUSCULOSKELETAL:No Clubbing/cyanosis;muscles-grossly intact. ON many joints INVESTIGATIONS, reviewed in the clinical context: Nuclear stress test: Negative for ischemia CT chest: Negative for PE LDL 91 White count 3.8 hemoglobin 12.9 platelets 187 potassium 4.3 BUN 29 creatinine 0.69 D-dimer 0.62 EKG tracing personally reviewed by me-underlying atrial fibrillation with ventricular paced rhythm intermittently Chest x-ray film personally reviewed by me-carbohydrate, less prominence Assessment and plan: -Acute congestive heart feeling exacerbation, EF not known Received 1 dose of IV Lasix 40 mg the ER. By mouth Lasix. 2-D echocardiogram. Discharged on Lasix 40 mg daily -Chest pain, possibly muscular skeletal Nuclear stress test-negative. -Elevated d-dimer 0.62 CT chest negative for PE -Persistent atrial fibrillation, rate controlled Metoprolol XL 200 mg a day, Xarelto -Primary osteoarthritis Tylenol as needed -Full code Disposition: Home Plan - Discharge Summary Discharge Rx Participant: No New Discharge Prescriptions: New Nitroglycerin Sl Tabs [Nitrostat] 0.4 mg SUBLINGUAL Q5M PRN #30 tab PRN Reason: Chest Pain Continue Rivaroxaban [Xarelto] 20 mg PO W/SUPPER Metoprolol Succinate 200 mg PO DAILY Furosemide [Lasix] 80 mg PO DAILY Ibandronate Sodium [Boniva] 150 mg PO Q30D Vitamin D3/Calcium 600mg 1 tab PO BID Potassium Chloride [Klor-Con 10 ER] 10 meq PO DAILY Ezetimibe [Zetia] 10 mg PO W/SUPPER Aspirin [Cabarrus Aspirin EC] 81 mg PO W/SUPPER Retnavites 2 tab PO DAILY Allergy Pill(Unknown) 1 tab PO DAILY PRN PRN Reason: Allergy Symptoms Discharge Medication List Allergy Pill(Unknown) 1 tab PO DAILY PRN 04/25/22 [History] Aspirin [Cabarrus Aspirin EC] 81 mg PO W/SUPPER 04/25/22 [History] Ezetimibe [Zetia] 10 mg PO W/SUPPER 04/25/22 [History] Furosemide [Lasix] 80 mg PO DAILY 04/25/22 [History] Ibandronate Sodium [Boniva] 150 mg PO Q30D 04/25/22 [History] Metoprolol Succinate 200 mg PO DAILY 04/25/22 [History] Potassium Chloride [Klor-Con 10 ER] 10 meq PO DAILY 04/25/22 [History] Retnavites 2 tab PO DAILY 04/25/22 [History] Rivaroxaban [Xarelto] 20 mg PO W/SUPPER 04/25/22 [History] Vitamin D3/Calcium 600mg 1 tab PO BID 04/25/22 [History] Nitroglycerin Sl Tabs [Nitrostat] 0.4 mg SUBLINGUAL Q5M PRN #30 tab 04/27/22 [Rx] Follow up Appointment(s)/Referral(s): cardiology, [Other] - 1 Week Aarti Peña DO [Primary Care Provider] - 1-2 days
== END 2022-04-27 22:38 | disposition home or self-care (01) ==
LOC: EC 10:20 → 6NMEDSUR 12:47
PROVIDERS: ADMIT Hospitalist; ATTEND Hospitalist
DX: I50.9 Heart failure, unspecified (principal); I11.0 Hypertensive heart disease with heart failure; E78.5 Hyperlipidemia, unspecified; I48.21 Permanent atrial fibrillation; R07.9 Chest pain, unspecified; M19.91 Primary osteoarthritis, unspecified site; R79.1 Abnormal coagulation profile; Z90.49 Acquired absence of other specified parts of digestive tract; Z90.710 Acquired absence of both cervix and uterus; Z98.49 Cataract extraction status, unspecified eye; Z95.0 Presence of cardiac pacemaker; Z98.890 Other specified postprocedural states; Z79.01 Long term (current) use of anticoagulants; Z79.82 Long term (current) use of aspirin; Z79.899 Other long term (current) drug therapy; Z88.0 Allergy status to penicillin
CPT/HCPCS: 96374; 99285; 36415; 94760 ×2; 93005; 93017; 85379; 83880; 80061; 80053; 80048; 83735; 84484; 85025; 85610; 85730; 71046; 71275; 78452; G0378 ×3; A9500; J1940; J2785; Q9967